=== PATIENT | female | born 1965 | race Hispanic/Latino ===

== ENCOUNTER → 2017-08-18 | Outpatient (CLI) | payer OTHER | END | disposition home or self-care (01) | LOC: RAH 10:40 | PROVIDERS: ATTEND Nurse Practitioner Adult Health | DX: R92.8 Other abnormal and inconclusive findings on diagnostic imaging of breast (principal) | CPT/HCPCS: 77066 ==

== ENCOUNTER → 2020-03-24 | Outpatient (CLI) | payer OTHER | END | disposition home or self-care (01) | LOC: RAH 11:24 | PROVIDERS: ATTEND Nurse Practitioner Adult Health | DX: Z12.31 Encounter for screening mammogram for malignant neoplasm of breast (principal) | CPT/HCPCS: 77067 ==

== ENCOUNTER → 2020-05-09 | Outpatient (CLI) | payer OTHER | END | disposition home or self-care (01) | LOC: RAH 13:59 | PROVIDERS: ATTEND Nurse Practitioner Adult Health | DX: Z13.6 Encounter for screening for cardiovascular disorders (principal) | CPT/HCPCS: 75571 ==

== ENCOUNTER → 2022-06-12 | Outpatient (CLI) | payer OTHER | END | disposition home or self-care (01) | LOC: RAH 08:58 | PROVIDERS: ATTEND Nurse Practitioner Adult Health | DX: Z12.31 Encounter for screening mammogram for malignant neoplasm of breast (principal) | CPT/HCPCS: 77067 ==